=== PATIENT | male | born 1965 | race Caucasian/White ===

== ENCOUNTER 2018-02-24 09:38 | Emergency (ER) | payer OTHER ==
[~2018-02-24] VITALS: Ht 165.1 cm; Wt 68.2 kg
[2018-02-24] MEDS ORDERED: SODIUM CHLORIDE 0.9% 0 ML ONE (10:17)
[2018-02-24] MEDS ORDERED: IOVERSOL 350 MG/ML 150 ML VIAL ONE (10:17)
[2018-02-24 10:31] LABS: BASOPHILS % (AUTO) 0.5 % (0.0-2.0); EOSINOPHILS % (AUTO) 1.9 % (1.0-6.0); HEMATOCRIT 46.1 % (41-53); HEMOGLOBIN 15.6 g/dL (13.5-17.5); LYMPHOCYTES # (AUTO) 1.9 K/uL (1.0-4.8); LYMPHOCYTES % (AUTO) 29.6 % (22.0-44.0); MEAN CORPUSCULAR HEMOGLOBIN 30.5 pg (26.0-34.0); MEAN CORPUSCULAR HGB CONC 33.9 G/dL (31.0-37.0); MEAN CORPUSCULAR VOLUME 90 fL (80-100); MONOCYTES # (AUTO) 0.5 K/uL (0.1-1.0); PLATELET COUNT (AUTO) 273 K/uL (150-450); RED BLOOD CELL COUNT(AUTO) 5.12 MIL/uL (4.50-5.90); RED CELL DISTRIBUTION WIDTH 15.1 % (11.5-14.5)
[2018-02-24 10:41] LABS: ANION GAP 7 mmol/L (8-16); CARBON DIOXIDE 28 mmol/L (22-29); CHLORIDE 106 mmol/L (98-107); GLOMERULAR FILTR. RATE CALC > 60 mL/min (>60); GLUCOSE,RANDOM 88 mg/dL (70-110); POTASSIUM 4.2 mmol/L (3.5-5.1); SODIUM SERUM 141 mmol/L (136-145); UREA NITROGEN, BLOOD 14 mg/dL (7-18)
[2018-02-24 10:44] LABS: INR 1.1 (0.9-1.1); PROTHROMBIN TIME 11.9 SEC (9.4-11.6)
[2018-02-24] MEDS ORDERED: SODIUM CHLORIDE 0.9% 100 ML ONE (10:44)
[2018-02-24] MEDS ORDERED: IOVERSOL 350 MG/ML 100 ML VIAL ONE (10:44)
[2018-02-24 10:56] LABS: B-TYPE NATRIURETIC PEPTIDE 19 pg/mL (0-100)
[2018-02-24] MEDS ORDERED: KETOROLAC TROMETHAMINE 30 MG/ML VIAL IVP ONE (11:00)
[2018-02-24 11:07] LABS: ALANINE AMINOTRANSFERASE 37 U/L (12-78); ALBUMIN 3.6 g/dL (3.4-5.0); ALKALINE PHOSPHATASE 80 U/L (46-116); ASPARTATE AMINOTRANSFERASE 24 U/L (15-37); BILIRUBIN,TOTAL 0.4 mg/dL (0.1-1.0); CREATINE KINASE, TOTAL ONLY 87 U/L (39-308); TOTAL PROTEIN, SERUM 6.7 g/dL (6.4-8.2)
[2018-02-24 14:25] VITALS: BP 121/68
== END 2018-02-24 15:10 | disposition home or self-care (01) ==
LOC: EMS 09:39
DX: R07.9 Chest pain, unspecified (principal); R91.1 Solitary pulmonary nodule
CPT/HCPCS: 36415; 71045; 71275; 80053; 82550; 83880; 84484; 85025; 85610; 85730; 93005; 96374; 99285; J1885; J7050; Q9967

== ENCOUNTER → 2024-06-25 | Emergency (ER) | payer OTHER ==
[~2024-06-25] VITALS: Ht 167.6 cm; Wt 82.7 kg
[~2024-06-25] MED LIST: APIX5TAB PO; htn PO
[2024-06-25 16:56] VITALS: BP 136/81; PULSE 61; RESP 18; TEMP 98.2; O2SAT 97
[2024-06-25] MEDS: IBUPROFEN 600 MG TABLET PO ONE (20:56)
== END | disposition home or self-care (01) ==
LOC: EMS 16:55
DX: S86.112A Strain of other muscle(s) and tendon(s) of posterior muscle group at lower leg level, left leg, initial encounter (principal); Z79.01 Long term (current) use of anticoagulants; Z86.718 Personal history of other venous thrombosis and embolism; X58.XXXA Exposure to other specified factors, initial encounter; Y93.89 Activity, other specified; Y92.89 Other specified places as the place of occurrence of the external cause; Y99.8 Other external cause status
CPT/HCPCS: 93971; 99284; Z7502; Z7610